=== PATIENT | male | born 1970 | race Caucasian/White ===

== ENCOUNTER 2024-06-15 04:58 | Inpatient (IN) | payer OTHER, MEDICAID, MEDICARE, SELFPAY ==
[2024-06-15] VITALS (8 sets, daily range): BP systolic 107–128; BP diastolic 73–94; PULSE 73–106; RESP 15–19; TEMP 36.3–36.8; O2SAT 95–98; BMI 30.5
--- NOTE | 2024-06-15 05:17 | XR_ITS ---
Examination: AP chest single view Technique one AP portable upright chest single view Exam date and time: June 15, 2024 0541 hrs. Comparison February 02, 2024 Indication: Weakness today. Findings: Normal heart size No pneumonia or pulmonary edema The osseous structures are intact Impression: No active disease
--- NOTE | 2024-06-15 05:17 | PD.EDRME ---
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 Patient states he feels weak and thinks his sodium is low. Patient states he fell on his butt every time, but doesn't feel like anything is broken. Chief Complaint: Fall Vital signs: Vital Signs Temperature 98.2 F 06/15/24 05:09 Pulse Rate 86 06/15/24 05:09 Respiratory Rate 19 06/15/24 05:09 Blood Pressure 107/73 06/15/24 05:09 Pulse Oximetry (%) 96 06/15/24 05:09 Oxygen Delivery Method Room Air 06/15/24 05:09
[2024-06-15 06:23] LABS: Basophils # (Auto) 0.1 Thou/mm3 (0.0-0.2); Basophils % (Auto) 1 % (0-2.5); Eosinophils # (Auto) 0.2 Thou/mm3 (0.0-0.5); Eosinophils % (Auto) 2 % (0-10); Hematocrit 48.5 % (41.0-53.0); Hemoglobin 15.8 g/dL (13.5-16.0); Immature Granulocytes % (Auto) 1 % (0-0); Immature Granulocytes Auto 0.04 Thou/mm3 (0.00-0.00); Lymphocytes % (Auto) 24 % (10-50); Mean Corpuscular HGB Conc 32.6 g/dl (31.0-37.0); Mean Corpuscular Hemoglobin 25.6 pg (25.0-35.0); Mean Corpuscular Volume 79 fL (80-100); Monocytes # (Auto) 0.8 Thou/mm3 (0.0-0.8); Monocytes % (Auto) 9 % (0-12); Neutrophils # (Auto) 5.4 Thou/mm3 (1.8-7.7); Neutrophils % (Auto) 64 % (37-80); Nucleated Red Blood Cell % 0 /100 WBC (0); Platelet Count 156 Thou/mm3 (140-440); RDW Standard Deviation 43.5 fL (35.1-43.9); Red Blood Count 6.18 Miln/mm3 (4.50-5.90); White Blood Count 8.6 Thou/mm3 (3.8-10.6)
[2024-06-15 06:48] LABS: B-Type Natriuretic Peptide < 20 pg/mL (0-100)
[2024-06-15 07:00] LABS: Alanine Aminotransferase 116 U/L (10-49); Albumin, Serum 5.1 gm/dL (3.5-5.0); Albumin/Globulin Ratio 1.5 (1.2-2.2); Alkaline Phosphatase 122 U/L (46-116); Anion Gap 9 (7-16); Aspartate Amino Transferase 100 U/L (0-34); BUN/Creatinine Ratio 10 Ratio (12-20); Bilirubin,Total 0.4 mg/dL (0.3-1.2); Blood Urea Nitrogen 10 mg/dL (9-23); Calcium 10.4 mg/dL (8.3-10.6); Calcium (Corrected) 10.4 mg/dL (8.5-10.1); Carbon Dioxide 31.7 mMol/L (20.0-31.0); Chloride 105 mMol/L (98-107); Estimated Creatinine Clearance 98.5 mL/min (>60); Globulin 3.4 gm/dL (2.3-3.5); Glucose 111 mg/dL (74-106); Osmolality,Calculated 290 (275-295); Sodium 146 mMol/L (136-145); Total Protein 8.5 gm/dL (5.7-8.2); Troponin I < 0.002 ng/mL (0.0-0.045); eGFR > 60 See Note
[2024-06-15 08:45] LABS: Collection Type, Urine Clean Catch
[2024-06-15 09:14] LABS: Bilirubin,Urine Negative (Negative); Blood,Urine Negative (Negative); Clarity,Urine Clear (Clear/Hazy); Culture Indicated,Urine Not Indicated; Glucose, Urine Trace (Negative); Ketones,Urine Negative (Negative); Leukocyte Esterase,Urine Negative (Negative); Nitrite,Urine Negative (Negative); Protein,Urine Negative (Neg - Trace); RBC,Urine < 1 /hpf (0-3); Specific Gravity,Urine 1.006 (1.001-1.035); Squamous Epithelial Cell,Urine < 1 /hpf (0-5); Urobilinogen,Urine Negative mg/dL (0.0-1.0); WBC,Urine 1 /hpf (0-5)
[2024-06-15 09:23] LABS: Color,Urine Lt-Yellow (Lt Yel-Yel)
--- NOTE | 2024-06-15 09:56 | PC.NURSE ---
patient brought in by ambulance for fall. patient states he was at alf and got up at 0200 and fell on his butt, patient also states falling off his bed at 0300 and falling on his butt. patient denies losing consciousness or hitting any other extremities during fall. patient states 0/10 pain at the moment
--- NOTE | 2024-06-15 10:24 | PD.EDADULT ---
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 Patient states he feels weak and thinks his sodium is low. Patient states he fell on his butt every time, but doesn't feel like anything is broken. Patient presented to the emergency department complaining of generalized weakness with frequent falling last couple days. He has pituitary insufficiency and is on hydrocortisone daily. No fever. Positive for falling. No back pain. No headache. No chest pain. No neck pain. No abdominal pain. No bleeding. No hips pain Related Data Home Medications ?Medication ?Instructions ?Recorded ?Confirmed aspirin 81 mg tablet 81 mg PO QDAY 12/26/23 06/15/24 atorvastatin 40 mg tablet 40 mg PO HS 12/26/23 06/15/24 empagliflozin 10 mg tablet 10 mg PO QAM 12/26/23 12/26/23 (Jardiance) levothyroxine 100 mcg tablet 100 mcg PO DAILY 12/26/23 06/15/24 linagliptin 5 mg tablet (Tradjenta) 5 mg PO DAILY 12/26/23 12/26/23 montelukast 10 mg tablet 10 mg PO QPM 12/26/23 06/15/24 omeprazole 20 mg capsule,delayed 20 mg PO DAILY 12/26/23 06/15/24 release solifenacin 5 mg tablet 5 mg PO QID 12/26/23 01/13/24 trazodone 100 mg tablet 150 mg PO HS 12/26/23 01/13/24 Previous Rx's ?Medication ?Instructions ?Recorded sodium chloride 1,000 mg soluble 1,000 mg PO QDAY #30 tabs 11/11/23 tablet hydrocortisone 5 mg tablet 5 mg PO QDAY@1400 30 days #30 tabs 01/18/24 hydrocortisone 5 mg tablet 5 mg PO QDAY@1800 30 days #30 tabs 01/18/24 hydrocortisone 5 mg tablet 15 mg (3 x 5 mg) PO QDAY@0600 30 01/18/24 days #90 tabs desmopressin 0.2 mg tablet 0.2 mg PO TID #60 tabs 01/19/24 Allergies Allergy/AdvReac Type Severity Reaction Status Date / Time No Known Allergies Allergy Verified 11/11/23 13:48 Review of Systems Review of Systems Narrative Review of Systems: REVIEW OF SYSTEM: GEN:? negative except mentioned in HPI HEENT:? negative except mentioned in HPI NECK:? negative except mentioned in HPI PULM:? negative except mentioned in HPI CARD:? negative except mentioned in HPI GI:? negative except mentioned in HPI MUSCULO/SKET: negative except mentioned in HPI SKIN:? negative except mentioned in HPI NEURO:? negative except mentioned in HPI PSYCH:? negative except mentioned in HPI Past Medical History Past Medical History NEUROLOGIC: Positive Brain Tumor; Negative Seizures CARDIAC: Negative Congestive Heart Failure RESPIRATORY: Negative Chronic Obstructive Pulmonary Disease (COPD) GENITOURINARY: Negative Renal Disease MUSCULOSKELETAL: Negative Muscular Dystrophy ENDOCRINE: Positive Diabetes Mellitus Type 2 and Pituitary Disease; Negative Diabetes Mellitus Type 1 PSYCHO/SOCIAL: Positive Depression OTHER HISTORY: Positive Falls Social History SMOKING STATUS: Never smoker ED Exam Narrative Physical exam: Aaox4. No acute distress O2 saturation is normal Heent:? perra. Eomi. No icteric. Neck: full rom.? No mass.? No jvd.? No lymphadenopathy Lungs:? clear, full, equal Heart:? s1s2.? Rrr.? No murmur, gallop or rub. Abd: soft, nondistended, nontender, no mass, no rebound or guarding, no flank tender.? No incarcerated? hernia Ext:? full rom.? No deformity.? Normal csm. With generalized weakness muscle strength 3/5 throughout Neuro:?? intact cn2 to 12.? No facial droop.? No slurred speech.? No focal deficit.? Moves all 4ext Skin:? no rash.? No cellulitis.? No lesion.? No laceration Psychiatrical: no suicidal.? No homicidal.? No delusion.? No hallucinating Course Quality Measures none Orders Category Date Time Status Water Softener Installer Q4H START 00 Care 06/15/24 10:20 Completed EKG (ED ONLY) *Do not use* NOW Care 06/15/24 05:16 Completed Saline [Insert IV] NOW Care 06/15/24 10:23 Active EKG (ED Only) Stat Exams 06/15/24 05:16 Ordered XR chest 1V portable Stat Exams 06/15/24 05:17 Completed B-Type Natriuretic Peptide Stat Lab 06/15/24 05:48 Completed CBC Stat Lab 06/15/24 05:48 Completed Comprehensive Metabolic Panel Stat Lab 06/15/24 05:48 Completed Troponin I Stat Lab 06/15/24 05:48 Completed Urinalysis, C/S if Indicated Stat Lab 06/15/24 07:18 Completed Hydrocortisone Sod Succ Inj [SoluCORTEF Inj] Med 06/15/24 10:20 Discontinued 100 mg IV X1 ONE Sodium Chloride 0.9% 1000 ml [Ns] 1,000 ml Med 06/15/24 10:32 Discontinued IV 250 mls/hr Vital Signs Vital signs: Vital Signs Temperature 98.2 F 06/15/24 05:09 Pulse Rate 86 06/15/24 05:09 Respiratory Rate 19 06/15/24 05:09 Blood Pressure 107/73 06/15/24 05:09 Pulse Oximetry (%) 96 06/15/24 05:09 Oxygen Delivery Method Room Air 06/15/24 05:09 [facility] Patient data External records reviewed:: [facility] previous records Clinical information provided by:: patient Social determinants that could affect healthcare access:: none Patient has the following chronic illnesses:: Hypopituitary How is presenting disease/condition affected by chronic disease/condition?: exacerbated by Evaluation data The following diagnostics were reviewed and interpreted by me:: lab results, radiology exam(s) and EKG tracing(s) Lab and/or radiology exams considered but not ordered:: None Interpretation Summary: See [facility] Medications Medications considered but not ordered:: None Medication administrations:: Medication Administration History Acetaminophen (Acetaminophen 325 Mg Tablet) 650 mg PO Q6H PRN PRN Reason: Fever >101.5 Stop: 07/15/24 11:57 Aspirin (Aspirin Ec 81 Mg Tabec) 81 mg PO QDAY [facility] Stop: 07/15/24 16:29 Last Admin: 06/15/24 16:38 Dose: 81 mg Documented By: PARKER Hydrocortisone (Hydrocortisone 5 Mg Tablet) 5 mg PO BID@1400,1800 [facility] Stop: 07/15/24 17:59 Last Admin: 06/15/24 17:15 Dose: 5 mg Documented By: PARKER Hydrocortisone (Hydrocortisone 5 Mg Tablet) 15 mg PO QDAY@0600 [facility] Stop: 07/16/24 05:59 Sodium Chloride (Ns 0.45%) 1,000 mls @ 75 mls/hr IV .[id number] ONE Stop: 06/16/24 05:35 Last Admin: 06/15/24 16:38 Dose: 75 mls/hr Documented By: PARKER Levothyroxine Sodium (Levothyroxine Sodium 100 Mcg Tablet) 100 mcg PO ACBR [facility] Stop: 07/16/24 05:59 Home Medication- Please Speak With Patient Caregiver To Have Rx Brought To [facility] 1 ea PO TID [facility] Stop: 07/15/24 16:44 Last Admin: 06/15/24 16:53 Dose: Not Given Documented By: PARKER Non-Admin Reason: Medication Not Available Ondansetron HCl (Ondansetron Inj 2 Mg/Ml Inj 2 Ml) 4 mg IV Q6H PRN; Protocol PRN Reason: NAUSEA OR VOMITING Stop: 07/15/24 11:57 Pantoprazole Sodium (Pantoprazole 40 Mg Tablet) 40 mg PO DAILY [facility] Stop: 07/16/24 08:59 Discontinued Medications Atorvastatin Calcium (Atorvastatin Calcium 20 Mg Tablet) 40 mg PO HS [facility] Stop: 07/15/24 20:59 Hydrocortisone Sodium Succinate (Hydrocortisone Sod Succ Inj 100 Mg Vial) 100 mg IV X1 ONE Stop: 06/15/24 10:21 Last Admin: 06/15/24 11:43 Dose: 100 mg Documented By: CHACHO Sodium Chloride (Ns) 1,000 mls @ 250 mls/hr IV .Q4H ONE Stop: 06/15/24 14:31 Last Admin: 06/15/24 11:43 Dose: 250 mls/hr Documented By: EF Some of the medication given by me. Some of those medication given by the admitting doctor Consultations Consultation(s) initiated? (list below): No Diagnosis Differential Diagnosis ED Complaint MDM: Pituitary insufficiency. Stroke. Cardiac event. Sepsis Most likely diagnosis given after review of the tests above:: Hypopituitary Admission Indicated Admission indicated?: indicated Explain why admission is indicated or not indicated:: Patient will need supplemental hydrocortisone IV Admission Request Was there a request for admission?: Yes Admission Attestation Admission request attestation: Discussed case with [] from Hospitalist service regarding admission. Discussed patients ED course, exam findings, labs, and radiology results. The Hospitalist [agrees,declines] to accept the patient for admission. Disposition Plan Disposition Plan: Admit Medical Decision Making MDM Narrative MDM Narrative: CBC unremarkable. CMP negative. UA negative. BNP negative. Troponin negative. Chest x-ray interpreted by me: Clear lungs. Heart normal. Mediastinum normal. Normal bones Twelve-lead EKG that was done at 5:36 AM and interpreted by me: Sinus rhythm. Heart rate of 88. Left axis. No ST elevation. No ST depression. Nonspecific T wave inversions are noted in leads I, aVL and V V1-V6. With PVC. In the emergency department the patient was put on a academic support coordinator. He is being given hydrocortisone IV by me. 10:20 AM, I spoke to and discussed with Dr. Powell, hospitalist attending. He will assess the patient for admission. Critical care is approximately 35 minutes excluding any procedure. The high probability of sudden, clinically significant deterioration in the patient?s condition required the highest level of my preparedness to intervene urgently. The services I provided to this patient were to treat and/or prevent clinically significant deterioration. Services included the following: chart data review, reviewing nursing notes and/or old charts, documentation time, healthcare network consultant collaboration regarding findings and treatment options, medication orders and management, direct patient care, vital sign assessments and ordering, interpreting and reviewing diagnostic studies and lab tests. Aggregate critical care time includes only time during which I was engaged in work directly related to the patient?s care, as described above, whether at bedside or elsewhere in the Emergency Department. It did not include time spent performing other reported procedures or the services of residents, students, nurses or physician assistants. Differential Diagnosis Differential Diagnosis: Pituitary insufficiency. Stroke. Cardiac event. Sepsis Lab Data 06/15/24 05:48 06/15/24 05:48 Labs: Lab Results 06/15/24 06/15/24 Range/Units 05:48 07:18 WBC 8.6 (3.8-10.6) Thou/mm3 RBC 6.18 H (4.50-5.90) Miln/mm3 Hgb 15.8 (13.5-16.0) g/dL Hct 48.5 (41.0-53.0) % MCV 79 L (80-100) fL MCH 25.6 (25.0-35.0) pg MCHC 32.6 (31.0-37.0) g/dl RDW Std Deviation 43.5 (35.1-43.9) fL Plt Count 156 (140-440) Thou/mm3 Neut % (Auto) 64 (37-80) % Lymph % (Auto) 24 (10-50) % [place] % (Auto) 9 (0-12) % Eos % (Auto) 2 (0-10) % Baso % (Auto) 1 (0-2.5) % Neut # (Auto) 5.4 (1.8-7.7) Thou/mm3 Lymph # (Auto) 2.0 (1.0-4.8) Thou/mm3 [place] # (Auto) 0.8 (0.0-0.8) Thou/mm3 Eos # (Auto) 0.2 (0.0-0.5) Thou/mm3 Baso # (Auto) 0.1 (0.0-0.2) Thou/mm3 Immature Gran # (Auto) 0.04 H (0.00-0.00) Thou/mm3 Absolute Nucleated RBC 0.00 (0.00-0.00) Thou/mm3 Immature Gran % 1 H (0-0) % Nucleated RBC % 0 (0) /100 WBC Sodium 146 H (136-145) mMol/L Potassium 4.0 (3.4-5.1) mMol/L Chloride 105 (98-107) mMol/L Carbon Dioxide 31.7 H (20.0-31.0) mMol/L Anion Gap 9 (7-16) BUN 10 (9-23) mg/dL Creatinine 1.0 (0.6-1.3) mg/dL Estim Creat Clear Calc 98.5 (>60) mL/min eGFR > 60 (60 - ) See Note BUN/Creatinine Ratio 10 L (12-20) Ratio Glucose 111 H (74-106) mg/dL Calculated Osmolality 290 (275-295) Calcium 10.4 (8.3-10.6) mg/dL Corrected Calcium 10.4 H (8.5-10.1) mg/dL Total Bilirubin 0.4 (0.3-1.2) mg/dL AST 100 H (0-34) U/L ALT 116 H (10-49) U/L Alkaline Phosphatase 122 H (46-116) U/L Troponin I < 0.002 (0.0-0.045) ng/mL B-Natriuretic Peptide < 20 (0-100) pg/mL Total Protein 8.5 H (5.7-8.2) gm/dL Albumin 5.1 H (3.5-5.0) gm/dL Globulin 3.4 (2.3-3.5) gm/dL Albumin/Globulin Ratio 1.5 (1.2-2.2) Ur Collection Type Clean Catch Urine Color Lt-Yellow (Lt Yel-Yel) Urine Clarity Clear (Clear/Hazy) Urine pH 6.0 (5.0-7.0) Ur Specific [place] 1.006 (1.001-1.035) Urine Protein Negative (Neg - Trace) Urine Glucose (UA) Trace (Negative) Urine Ketones Negative (Negative) Urine Blood Negative (Negative) Urine Nitrite Negative (Negative) Urine Bilirubin Negative (Negative) Urine Urobilinogen (Auto) Negative (0.0-1.0) mg/dL Ur Leukocyte Esterase Negative (Negative) Urine RBC < 1 (0-3) /hpf Urine WBC 1 (0-5) /hpf Ur Squamous Epith Cells < 1 (0-5) /hpf Urine Bacteria None (None) Ur Culture Indicated? Not Indicated Ur Random Sodium 38.0 (20.0-110.0) mMol/L Discharge Plan Plan Patient Disposition: Admit Acute Care w/in Hospital Disposition Comment: Stable for admit Problem List Clinical Impression: Hypopituitarism, Generalized muscle weakness
--- NOTE | 2024-06-15 10:57 | PC.NURSE ---
hospitalist and residence at bedside to see pt
[2024-06-15] MEDS: SODIUM CHLORIDE 0.9% 1000 ML 1,000 ML 250 ML IV (11:43)
[2024-06-15] MEDS: HYDROCORTISONE SOD SUCC INJ 100 MG VIAL IV (11:43)
--- NOTE | 2024-06-15 13:53 | PD.RESHP ---
Documentation for date of: 06/15/24 [facility] History of Present Illness Chief complaint: Generalized weakness History of present illness: A 53-year-old male with significant past medical history of pitutary tumor s/p removal resulting in panhypopituitarism, diabetes mellitus, diabetes insipidus, hypothyroidism, adrenal insufficiency who was living in a assisted living facility presented to the hospital with chief complaints of generalized weakness. Reported that since 1 week, he noticed increased frequency of urination, once every 2 hours in the morning and every hourly during nights. Denies burning micturition, foul smell in the urine, chills and rigors, fever. Patient was able to do his routine activities till yesterday, but since yesterday patient noticed difficulty in walking. [place] like his legs are giving away and stated that he noticed weakness more in the lower extremities than upper extremities without any pain. Reported that he fell on his knees because of the weakness on the day of admission with no restriction of movements later. Denies palpitations, syncopal episodes, chest pain, shortness of breath, vertigo. Denies tingling, numbness. Reported that he is compliant with all his medications ED Course: -Initial vitals were blood pressure 107/73 mmHg, pulse rate 86 bpm, respiratory rate 19/min, SpO2 96% with room air. -Labs significant for WBC 8.6, hemoglobin 15.8, platelets 156, sodium 146, potassium 4, chloride 105, bicarb 31.7, BUN 10, creatinine 1. AST 100, ALT 116, urine analysis is within normal limits. Urine sodium is within normal limits. Chest x-ray showed no active disease. -In the ED, patient was given hydrocortisone and started on normal saline -Patient was admitted for hypernatremia Past medical history: Panhypopituitarism Past surgical history: Pituitary gland removal Social history: Denies smoking, alcohol, other illicit drug abuse. Review of Systems Review of Systems Narrative Review of Systems: Constitutional: No Weight Change, No Fever, No Chills, No Night Sweats, Fatigue, Malaise ENT/Mouth: No Hearing Changes, No Ear Pain, No Nasal Congestion, No Sinus Pain, No Hoarseness, No sore throat, No Rhinorrhea, No Swallowing Difficulty Eyes: No Eye Pain, No Swelling, No Redness, No Foreign Body, No Discharge, No Vision Changes Cardiovascular: No Chest Pain, No SOB, No PND, No Dyspnea on Exertion, No Orthopnea, No Edema, No Palpitations Respiratory: No Cough, No Sputum, No Wheezing, No Dyspnea Gastrointestinal: No Nausea, No Vomiting, No Diarrhea, No Constipation, No Pain, No Heartburn, No Anorexia, No Dysphagia, No Hematochezia, No Melena, No Flatulence, No Jaundice Genitourinary: No Dysuria, No Urinary Frequency, No Hematuria, No Urinary Incontinence, No Urgency, No Flank Pain, No Urinary Flow Changes, No Hesitancy Musculoskeletal: No Arthralgias, No Myalgias, No Joint Swelling, No Joint Stiffness, No Back Pain, No Neck Pain, No Injury History Skin: No Skin Lesions, No Pruritis Neuro: Generalized weakness, No Numbness, No Paresthesias, No Loss of Consciousness, No Syncope, No Dizziness, No Headache, No Coordination Changes, fall on his knees on 06/15/2024 Exam Vital Signs Temp Pulse Resp BP Pulse Ox O2 Del Method 98.3 F 91 18 112/83 96 Room Air 06/15/24 12:25 06/15/24 12:25 06/15/24 12:25 06/15/24 12:25 06/15/24 12:25 06/15/24 12:25 Narrative Exam General: Awake. HEENT: Normocephalic, atraumatic, mucous membranes moist. Heart: Regular rate and rhythm, no murmurs. Lungs: Clear to auscultation with no wheezing or crackles. Abdomen: Soft, nondistended, nontender, positive bowel sounds. ?No guarding or rebound tenderness. Neurologic: Alert and oriented x3, no gross neurological deficit, and patient able to move all 4 extremities. Extremities: No edema. Skin: No rash or ecchymoses. Results: Labs 06/16/24 04:39 06/16/24 04:39 Labs: Short CBC 06/15/24 Range/Units 05:48 WBC 8.6 (3.8-10.6) Thou/mm3 Hgb 15.8 (13.5-16.0) g/dL Hct 48.5 (41.0-53.0) % Plt Count 156 (140-440) Thou/mm3 BMP 06/15/24 05:48 Sodium 146 H Potassium 4.0 Chloride 105 Carbon Dioxide 31.7 H BUN 10 Creatinine 1.0 Glucose 111 H Calcium 10.4 Cardiac Enzymes 06/15/24 Range/Units 05:48 Troponin I < 0.002 (0.0-0.045) ng/mL Liver Function 06/15/24 Range/Units 05:48 Total Bilirubin 0.4 (0.3-1.2) mg/dL AST 100 H (0-34) U/L ALT 116 H (10-49) U/L Alkaline Phosphatase 122 H (46-116) U/L Albumin 5.1 H (3.5-5.0) gm/dL Urine 06/15/24 Range/Units 07:18 Urine Color Lt-Yellow (Lt Yel-Yel) Urine Clarity Clear (Clear/Hazy) Urine pH 6.0 (5.0-7.0) Ur Specific [place] 1.006 (1.001-1.035) Urine Protein Negative (Neg - Trace) Urine Glucose (UA) Trace (Negative) Quality Measures Quality Measures VTE prophylaxis Medications Home Medications and Allergies Home Medications ?Medication ?Instructions ?Recorded ?Confirmed ?Type aspirin 81 mg tablet 81 mg PO QDAY 12/26/23 06/15/24 History atorvastatin 40 mg tablet 40 mg PO HS 12/26/23 06/15/24 History empagliflozin 10 mg tablet 10 mg PO QAM 12/26/23 12/26/23 History (Jardiance) levothyroxine 100 mcg tablet 100 mcg PO DAILY 12/26/23 06/15/24 History linagliptin 5 mg tablet (Tradjenta) 5 mg PO DAILY 12/26/23 12/26/23 History montelukast 10 mg tablet 10 mg PO QPM 12/26/23 06/15/24 History omeprazole 20 mg capsule,delayed 20 mg PO DAILY 12/26/23 06/15/24 History release solifenacin 5 mg tablet 5 mg PO QID 12/26/23 01/13/24 History trazodone 100 mg tablet 150 mg PO HS 12/26/23 01/13/24 History Allergies Allergy/AdvReac Type Severity Reaction Status Date / Time No Known Allergies Allergy Verified 06/16/24 06:33 Visit Medications Acetaminophen (Acetaminophen 325 Mg Tablet) 650 mg PO Q6H PRN PRN Reason: Fever >101.5 Stop: 07/15/24 11:57 Sodium Chloride (Ns) 1,000 mls @ 250 mls/hr IV .Q4H ONE Stop: 06/15/24 14:31 Last Admin: 06/15/24 11:43 Dose: 250 mls/hr Ondansetron HCl (Ondansetron Inj 2 Mg/Ml Inj 2 Ml) 4 mg IV Q6H PRN; Protocol PRN Reason: NAUSEA OR VOMITING Stop: 07/15/24 11:57 Discontinued Medications Hydrocortisone Sodium Succinate (Hydrocortisone Sod Succ Inj 100 Mg Vial) 100 mg IV X1 ONE Stop: 06/15/24 10:21 Last Admin: 06/15/24 11:43 Dose: 100 mg Assessment & Plan Plan A 53-year-old male with significant past medical history of 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 twice daily, desmopressin 0.2 Mg p.o. 3 times daily, levothyroxine 100 mcg p.o. daily, Jardiance 10 Mg p.o. daily, Tradjenta 5 Mg p.o. daily -Recently admitted in the hospital in December 2023 for hyponatremia -Presented with generalized weakness and also reported that his knees are giving away -Also reported that since 1 week he is urinating more frequently, once in every 2 hours during the day and once every hour during nights -Denies fever, burning micturition, shortness of breath, nausea, vomiting, diarrhea. -Labs showed CBC within normal limits, sodium 146, potassium 4, chloride 105, bicarb 31.7, BUN 10, creatinine 1, calcium 10.4, BNP negative. -Chest x-ray showed no active disease. Plan -Creatinine kinase levels are ordered to look for steroid induced myopathy in setting of elevated liver enzymes -Will continue medications at home dosage. -Recommended to follow-up with Dr. Watts to adjust the medications # Hypernatremia To rule out inadequate dosage of medications for diabetes insipidus -Patient normally is to have low sodium levels -Presented with generalized weakness and noted to have sodium of 146 -Stated that he is having increased frequency of micturition without any symptoms of UTI Plan -Started on 0.45% NS at 75 mL/h -Urine sodium is ordered -Will continue to monitor sodium levels and treat accordingly. Hospital Maintenance: Dispo: MedSurg DVT ppx: SCD GI ppx: PPI Diet: Regular IV lines: Peripheral Code status: Full code Patient plan of care was discussed with the attending physician, Dr. Sherry Torres, PGY1 Attending Provider Attestation/Addendum I reviewed labs, imaging, EKG, home medications and prior available records. Face to face evaluation was performed by me. I have personally examined the patient and discussed assessment and plan with the IM team. I reviewed the resident note and agree with the plan with exceptions as below. Generalized weakness Hypopituitarism Chronic steroid use hypernatremia Resume home hydrocortisone, desmopressin, and levothyroxine Ordered CPK Start IV hydration Monitor sodium level Consult endocrinology Obtain PT evaluation
[2024-06-15 16:30] LABS: Creatine Kinase 122 U/L (34-171)
[2024-06-15] MEDS: SODIUM CHLORIDE 0.45 % 1,000 ML 75 ML IV (16:38)
[2024-06-15] MEDS: ASPIRIN EC 81 MG TABEC PO (16:38)
[2024-06-15] MEDS: HYDROCORTISONE 5 MG TABLET PO (17:15)
[2024-06-16] VITALS: BP 134/95; PULSE 98; RESP 16; TEMP 36.1; O2SAT 95
[2024-06-16 04:00] VITALS: BP 134/94; PULSE 93; RESP 17; TEMP 36.4; O2SAT 96
[2024-06-16] MEDS: HYDROCORTISONE 5 MG TABLET 15 MG PO (06:08)
[2024-06-16] MEDS: LEVOTHYROXINE SODIUM 100 MCG TABLET PO (06:08)
[2024-06-16 06:12] LABS: Basophils # (Auto) 0.1 Thou/mm3 (0.0-0.2); Basophils % (Auto) 1 % (0-2.5); Eosinophils # (Auto) 0.1 Thou/mm3 (0.0-0.5); Eosinophils % (Auto) 1 % (0-10); Hematocrit 54.3 % (41.0-53.0); Hemoglobin 17.2 g/dL (13.5-16.0); Immature Granulocytes % (Auto) 1 % (0-0); Immature Granulocytes Auto 0.13 Thou/mm3 (0.00-0.00); Lymphocytes # (Auto) 2.6 Thou/mm3 (1.0-4.8); Lymphocytes % (Auto) 22 % (10-50); Mean Corpuscular HGB Conc 31.7 g/dl (31.0-37.0); Mean Corpuscular Hemoglobin 25.8 pg (25.0-35.0); Mean Corpuscular Volume 81 fL (80-100); Monocytes # (Auto) 1.1 Thou/mm3 (0.0-0.8); Monocytes % (Auto) 9 % (0-12); Neutrophils # (Auto) 7.6 Thou/mm3 (1.8-7.7); Neutrophils % (Auto) 66 % (37-80); Nucleated Red Blood Cell % 0 /100 WBC (0); Platelet Count 201 Thou/mm3 (140-440); RDW Standard Deviation 46.5 fL (35.1-43.9); Red Blood Count 6.67 Miln/mm3 (4.50-5.90); White Blood Count 11.6 Thou/mm3 (3.8-10.6)
[2024-06-16 06:30] LABS: Alanine Aminotransferase 131 U/L (10-49); Albumin/Globulin Ratio 1.5 (1.2-2.2); Alkaline Phosphatase 130 U/L (46-116); Anion Gap 13 (7-16); Aspartate Amino Transferase 69 U/L (0-34); BUN/Creatinine Ratio 9 Ratio (12-20); Bilirubin,Total 0.6 mg/dL (0.3-1.2); Blood Urea Nitrogen 9 mg/dL (9-23); Calcium 10.3 mg/dL (8.3-10.6); Calcium (Corrected) 10.3 mg/dL (8.5-10.1); Carbon Dioxide 29.8 mMol/L (20.0-31.0); Chloride 112 mMol/L (98-107); Estimated Creatinine Clearance 98.5 mL/min (>60); Globulin 3.4 gm/dL (2.3-3.5); Glucose 101 mg/dL (74-106); Magnesium 2.5 mg/dL (1.6-2.6); Osmolality,Calculated 306 (275-295); Phosphorous 5.1 mg/dL (2.4-5.1); Sodium 155 mMol/L (136-145); Thyroid Stimulating Hormone 0.06 uIU/mL (0.55-4.78); Total Protein 8.4 gm/dL (5.7-8.2); eGFR > 60 See Note
--- NOTE | 2024-06-16 06:30 | PC.NURSE ---
iv fluid complete- Saline locked iv.
--- NOTE | 2024-06-16 06:36 | PC.NURSE ---
re own med and home med rec- Advised pt to have family bring desmopressin med from home and bring all med lists for med verification.
[2024-06-16 08:00] VITALS: BP 115/87; PULSE 99; RESP 18; TEMP 36.4; O2SAT 97
[2024-06-16] MEDS: PANTOPRAZOLE 40 MG TABLET PO (09:23)
[2024-06-16] MEDS: ASPIRIN EC 81 MG TABEC PO (09:23)
[2024-06-16] MEDS: DEXTROSE 5%-WATER 1,000 ML 80 ML IV (09:25)
[2024-06-16] MEDS: LEVOTHYROXINE SODIUM 25 MCG TABLET PO (11:35)
[2024-06-16 11:58] LABS: Albumin, Serum 4.6 gm/dL (3.5-5.0); Anion Gap 6 (7-16); BUN/Creatinine Ratio 8 Ratio (12-20); Blood Urea Nitrogen 9 mg/dL (9-23); Calcium 9.8 mg/dL (8.3-10.6); Calcium (Corrected) 9.8 mg/dL (8.5-10.1); Carbon Dioxide 34.1 mMol/L (20.0-31.0); Chloride 111 mMol/L (98-107); Creatinine (Component) 1.2 mg/dL (0.6-1.3); Estimated Creatinine Clearance 82.1 mL/min (>60); Free T4 (Free Thyroxine) 0.83 ng/dL (0.89-1.76); Glucose 180 mg/dL (74-106); Osmolality,Calculated 303 (275-295); Phosphorous 4.9 mg/dL (2.4-5.1); Potassium 3.9 mMol/L (3.4-5.1); Sodium 151 mMol/L (136-145); eGFR > 60 See Note
[2024-06-16 12:00] VITALS: BP 127/97; PULSE 72; RESP 18; TEMP 36.5; O2SAT 97
[2024-06-16] MEDS: HYDROCORTISONE 5 MG TABLET PO ×2 (13:20→17:40)
--- NOTE | 2024-06-16 14:37 | PD.RESPRO ---
Documentation for date of: 06/16/24 Subjective Subjective Interval history: Patient was seen and examined at bedside this AM. No acute events overnight. Patient tolerating diet, adequate urine output and mentation is improving but not yet at baseline Likely in the setting of severe hypothyroidism, TSH 0.06 and free T4 0.[address] Watts's recommendations. Increased Levothyroxine from 100 -> 125 mcg daily for now @ 8:30 AM : Discontinued 0.45 NS, given increase in Na 146 -> 153. Started on D5W @ 80 cc/h with q4H renal panel. @ 2:30 PM : Na 153 -> 151 and Osm 306 -> 303. Will continue to monitor q4hrly Ordered PT evaluation for tomorrow, once mentation improves a bit more Exam Vital Signs Temp Pulse Resp BP Pulse Ox O2 Del Method 97.7 F 72 18 127/97 H 97 Room Air 06/16/24 12:00 06/16/24 12:00 06/16/24 12:00 06/16/24 12:00 06/16/24 12:00 06/16/24 12:00 Narrative Exam Constitutional Drowsy, oriented x4 and comfortable HEENT Vision grossly intact. Patent nares. Trachea midline. On 1L via NC Respiratory Chest normal on inspection and clear to auscultation bilaterally. Cardiovascular S1 and S2 audible, RRR. No murmurs or carotid bruit. No gross JVD. Abdominal Soft and non tender to palpation in all quadrants. BS + Genitourinary No bladder tenderness, no flank pain. Normal to palpation. Musculoskeletal Extremities tone within normal limits. No LE edema. Neurological CN II - XII grossly intact. Extremity motor and sensation grossly intact. Generalized weakness. Skin Warm, dry and intact. No apparent lesions. Psychiatric Patient has a good affect, is cooperative. Objective Labs 06/16/24 04:39 06/16/24 14:44 Labs: Laboratory Results - last 24 hr 06/15/24 06/16/24 06/16/24 15:47 04:39 11:26 WBC 11.6 H RBC 6.67 H Hgb 17.2 H Hct 54.3 H MCV 81 MCH 25.8 MCHC 31.7 RDW Std Deviation 46.5 H Plt Count 201 D Neut % (Auto) 66 Lymph % (Auto) 22 [place] % (Auto) 9 Eos % (Auto) 1 Baso % (Auto) 1 Neut # (Auto) 7.6 Lymph # (Auto) 2.6 [place] # (Auto) 1.1 H Eos # (Auto) 0.1 Baso # (Auto) 0.1 Immature Gran # (Auto) 0.13 H Absolute Nucleated RBC 0.00 Immature Gran % 1 H Nucleated RBC % 0 Sodium 155 H 151 H Potassium 4.0 3.9 Chloride 112 H 111 H Carbon Dioxide 29.8 34.1 H Anion Gap 13 6 L BUN 9 9 Creatinine 1.0 1.2 Estim Creat Clear Calc 98.5 82.1 eGFR > 60 > 60 BUN/Creatinine Ratio 9 L 8 L Glucose 101 180 H D Calculated Osmolality 306 H 303 H Calcium 10.3 9.8 Corrected Calcium 10.3 H 9.8 Phosphorus 5.1 4.9 Magnesium 2.5 Total Bilirubin 0.6 AST 69 H ALT 131 H Alkaline Phosphatase 130 H Total Creatine Kinase 122 Total Protein 8.4 H Albumin 5.0 4.6 Globulin 3.4 Albumin/Globulin Ratio 1.5 TSH 0.06 L* Free T4 Cancelled 0.83 L Quality Measures Quality Measures none Assessment & Plan Assessment Current Active Medications: Generic Name Dose Route Start Last Admin Trade Name Freq PRN Reason Stop Dose Admin Acetaminophen 650 mg 06/16/24 13:08 Acetaminophen 325 Mg Tablet PO 07/15/24 11:57 Q6H PRN Fever >100.1 Aspirin 81 mg 06/15/24 16:30 06/16/24 09:23 Aspirin Ec 81 Mg Tabec PO 07/15/24 16:29 81 mg QDAY GERARD Administration Dextrose 50 ml 06/16/24 13:07 Dextrose 50%-Water Inj 50 Ml Syringe IV 07/16/24 13:06 Q15MIN PRN BG <50 OR BG <70 & pt unresponsive Glucagon 1 mg 06/16/24 13:07 Glucagon Inj 1 Mg Vial IM Q15MIN PRN BG <70, and no IV access Hydrocortisone 5 mg 06/15/24 18:00 06/16/24 13:20 Hydrocortisone 5 Mg Tablet PO 07/15/24 17:59 5 mg BID@1400,1800 GERARD Administration Hydrocortisone 15 mg 06/16/24 06:00 06/16/24 06:08 Hydrocortisone 5 Mg Tablet PO 07/16/24 05:59 15 mg QDAY@0600 GERARD Administration Dextrose 1,000 mls @ 80 mls/hr 06/16/24 08:21 06/16/24 09:25 D5w IV 06/16/24 20:50 80 mls/hr .[id number] ONE Administration Insulin Human Lispro 0 unit 06/16/24 17:00 Insulin Lispro (Admelog) 1 Unit/0.01 Ml Unit SC 07/16/24 16:59 ACHS [facility] Protocol Levothyroxine Sodium 125 mcg 06/17/24 06:00 Levothyroxine Sodium 125 Mcg Tablet PO 07/17/24 05:59 ACBR [facility] Home Medication- 1 ea 06/15/24 16:45 06/16/24 13:22 Please Speak With PO 07/15/24 16:44 Not Given Patient Caregiver To TID GERARD Have Rx Brought To [facility] Ondansetron HCl 4 mg 06/15/24 11:58 Ondansetron Inj 2 Mg/Ml Inj 2 Ml IV 07/15/24 11:57 Q6H PRN NAUSEA OR VOMITING Protocol Pantoprazole Sodium 40 mg 06/16/24 09:00 06/16/24 09:23 Pantoprazole 40 Mg Tablet PO 07/16/24 08:59 40 mg DAILY [facility] Administration Plan Mr Gold is a 53-year-old male with significant past medical history of 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 Generalized weakness Secondary to 2. Panhypopituitarism 3. Severe Hypothyroidism - Patient had a history of pituitary tumor removal at the age of 5 - Since then using medications -hydrocortisone 5 Mg p.o. twice daily, desmopressin 0.2 Mg p.o. 3 times daily, levothyroxine 100 mcg p.o. daily, Jardiance 10 Mg p.o. daily, Tradjenta 5 Mg p.o. daily - Recently admitted in the hospital in December 2023 for hyponatremia - Presented with generalized weakness and also reported that his knees are giving away , as well as polyuria x 2 weeks - Chest x-ray : no active disease - Severe hypothyroid : TSH 0.06 and free T4 0.83 Plan: - Will continue Hydrocortisone at home dose : 15mg @6am + 5mg @2pm + 5mg @6pm - Increased Levothyroxine from 100 -> 125 mcg daily for now - Recommended to follow-up with Endocrinology Dr. Watts outpatient for further treatment of hypothyroidism - Ordered PT evaluation for tomorrow 4. Hypertonic Hypernatremia - improving 5. Polyuria - Patient has a history of hyponatremia and was discharged on last hospitalization with NaCl tablets 1g daily - Labs : Sodium 146 and Osm 306 on presentation - Stated that he is having increased frequency of micturition without any symptoms of UTI - 06/16 : Discontinued 0.45 NS, given increase in Na 146 -> 153. Plan: - Started on D5W @ 80 cc/h with q4H renal panel. --> Follow up results show Na 153 -> 151 and Osm 306 -> 303. - Will continue to monitor renal panel q4HR - Stop all salt tabs for now - Low sodium diet only - Continue SSI w/ accu-checks, while patient is on D5W Hospital Maintenance: Dispo: MedSurg DVT ppx: SCDs GI ppx: PPI Diet: Low sodium IV lines: Peripheral Code status: Full code Plan of care discussed with attending Dr Powell , Sung Thornton M.D. , PGY2 Attending Provider Attestation/Addendum I reviewed labs, imaging, EKG, home medications and prior available records. Face to face evaluation was performed by me. I have personally examined the patient and discussed assessment and plan with the IM team. I reviewed the resident note and agree with the plan with exceptions as below. Generalized weakness Hypopituitarism Chronic steroid use Hypernatremia TSH is suppressed. Follow-up free T4. Increased levothyroxine to 125 mcg daily Resume home hydrocortisone, desmopressin Ordered CPK Started IV hydration Monitor sodium level: Increased. Started D5W. Monitor BMP Consult endocrinology Obtain PT evaluation
--- NOTE | 2024-06-16 15:21 | PC.SS ---
SS attempted x2 to meet with pt at bedside to discuss DC planning. Pt is asleep. SS attempted to speak to pt sister Delmis Mcintosh on pt behalf, no answer. VM Left.
--- NOTE | 2024-06-16 15:21 | PC.SS ---
Rounding: Pending Weatherization Field Technician reccs
[2024-06-16 15:40] LABS: Albumin, Serum 4.3 gm/dL (3.5-5.0); Anion Gap 9 (7-16); BUN/Creatinine Ratio 8 Ratio (12-20); Blood Urea Nitrogen 9 mg/dL (9-23); Calcium 9.6 mg/dL (8.3-10.6); Calcium (Corrected) 9.6 mg/dL (8.5-10.1); Chloride 110 mMol/L (98-107); Creatinine (Component) 1.2 mg/dL (0.6-1.3); Estimated Creatinine Clearance 82.1 mL/min (>60); Glucose 164 mg/dL (74-106); Osmolality,Calculated 300 (275-295); Phosphorous 5.9 mg/dL (2.4-5.1); Potassium 3.6 mMol/L (3.4-5.1); Sodium 150 mMol/L (136-145); eGFR > 60 See Note
--- NOTE | 2024-06-16 15:56 | PD.ADDPROG ---
Addendum Progress Note Addendum Date of report being addended: 06/17/24 Narrative: I reviewed labs, imaging, EKG, home medications and prior available records. Face to face evaluation was performed by me. I have personally examined the patient and discussed assessment and plan with the IM team. I reviewed the resident note and agree with the plan with exceptions as below. Generalized weakness Hypopituitarism Chronic steroid use Hypernatremia TSH is increased. Follow-up free T4: Decreased. Increased levothyroxine to 125 mcg daily Resume home hydrocortisone, desmopressin Ordered CPK: WNL Started IV hydration Monitor sodium level: Improved. Stop D5W. Monitor BMP Pending endocrinology recommendations Follow-up PT evaluation
[2024-06-16 16:00] VITALS: BP 124/88; PULSE 91; RESP 17; TEMP 36.6; O2SAT 96
[2024-06-16] MEDS: INSULIN LISPRO (AdmeLOG) 1 UNIT/0.01 ML UNIT SC ×2 (17:40→20:09)
[2024-06-16 20:00] VITALS: BP 125/84; PULSE 99; RESP 18; TEMP 36.8; O2SAT 97
[2024-06-16 20:31] LABS: Albumin, Serum 4.2 gm/dL (3.5-5.0); Anion Gap 8 (7-16); BUN/Creatinine Ratio 6 Ratio (12-20); Blood Urea Nitrogen 8 mg/dL (9-23); Calcium 9.6 mg/dL (8.3-10.6); Calcium (Corrected) 9.6 mg/dL (8.5-10.1); Carbon Dioxide 28.7 mMol/L (20.0-31.0); Chloride 110 mMol/L (98-107); Creatinine (Component) 1.3 mg/dL (0.6-1.3); Estimated Creatinine Clearance 75.8 mL/min (>60); Glucose 136 mg/dL (74-106); Osmolality,Calculated 292 (275-295); Phosphorous 5.4 mg/dL (2.4-5.1); Potassium 4.2 mMol/L (3.4-5.1); Sodium 147 mMol/L (136-145); eGFR > 60 See Note
[2024-06-16 23:52] LABS: Albumin, Serum 4.4 gm/dL (3.5-5.0); Anion Gap 10 (7-16); BUN/Creatinine Ratio 11 Ratio (12-20); Blood Urea Nitrogen 11 mg/dL (9-23); Calcium 9.9 mg/dL (8.3-10.6); Calcium (Corrected) 9.9 mg/dL (8.5-10.1); Carbon Dioxide 31.6 mMol/L (20.0-31.0); Chloride 107 mMol/L (98-107); Estimated Creatinine Clearance 98.5 mL/min (>60); Glucose 108 mg/dL (74-106); Osmolality,Calculated 296 (275-295); Phosphorous 4.9 mg/dL (2.4-5.1); Potassium 3.8 mMol/L (3.4-5.1); Sodium 149 mMol/L (136-145); eGFR > 60 See Note
[2024-06-17] VITALS: BP 108/75; PULSE 83; RESP 18; TEMP 36.7; O2SAT 99
[2024-06-17] MEDS: DEXTROSE 5%-WATER 1,000 ML 80 ML IV (01:03)
[2024-06-17 03:51] LABS: Basophils # (Auto) 0.1 Thou/mm3 (0.0-0.2); Basophils % (Auto) 2 % (0-2.5); Eosinophils # (Auto) 0.3 Thou/mm3 (0.0-0.5); Eosinophils % (Auto) 3 % (0-10); Hematocrit 46.1 % (41.0-53.0); Hemoglobin 14.7 g/dL (13.5-16.0); Immature Granulocytes % (Auto) 0 % (0-0); Immature Granulocytes Auto 0.02 Thou/mm3 (0.00-0.00); Lymphocytes # (Auto) 2.6 Thou/mm3 (1.0-4.8); Lymphocytes % (Auto) 27 % (10-50); Mean Corpuscular HGB Conc 31.9 g/dl (31.0-37.0); Mean Corpuscular Volume 81 fL (80-100); Monocytes # (Auto) 0.6 Thou/mm3 (0.0-0.8); Monocytes % (Auto) 7 % (0-12); Neutrophils # (Auto) 5.9 Thou/mm3 (1.8-7.7); Neutrophils % (Auto) 62 % (37-80); Nucleated Red Blood Cell % 0 /100 WBC (0); Platelet Count 198 Thou/mm3 (140-440); RDW Standard Deviation 46.5 fL (35.1-43.9); Red Blood Count 5.66 Miln/mm3 (4.50-5.90); White Blood Count 9.6 Thou/mm3 (3.8-10.6)
[2024-06-17 04:00] VITALS: BP 128/85; PULSE 86; RESP 18; TEMP 36.5; O2SAT 96
[2024-06-17 04:06] LABS: Anion Gap 6 (7-16); BUN/Creatinine Ratio 9 Ratio (12-20); Blood Urea Nitrogen 9 mg/dL (9-23); Calcium 9.4 mg/dL (8.3-10.6); Carbon Dioxide 31.6 mMol/L (20.0-31.0); Chloride 108 mMol/L (98-107); Estimated Creatinine Clearance 98.5 mL/min (>60); Glucose 129 mg/dL (74-106); Osmolality,Calculated 291 (275-295); Potassium 3.6 mMol/L (3.4-5.1); Sodium 146 mMol/L (136-145); eGFR > 60 See Note
[2024-06-17 04:07] LABS: Albumin, Serum 4.2 gm/dL (3.5-5.0); Calcium (Corrected) 9.4 mg/dL (8.5-10.1); Phosphorous 5.3 mg/dL (2.4-5.1)
[2024-06-17] MEDS: LEVOTHYROXINE SODIUM 125 MCG TABLET PO (05:15)
[2024-06-17] MEDS: HYDROCORTISONE 5 MG TABLET 15 MG PO (06:29)
[2024-06-17 08:00] VITALS: BP 123/96; PULSE 83; RESP 16; TEMP 36.3; O2SAT 96
[2024-06-17] MEDS: PANTOPRAZOLE 40 MG TABLET PO (08:02)
[2024-06-17] MEDS: ASPIRIN EC 81 MG TABEC PO (08:02)
--- NOTE | 2024-06-17 10:58 | PC.SS ---
Patient is alert/oriented. He is a resident of [facility]. Patient states he's been at [facility] for the last 7 months. He plans on returning to facility. Patient states his sister, Delmis, is his alt medical decision maker. He keeps in contact with sister. Patient states he receives Social Security income and disability. Patient is independent with ADL's. Patient states he uses a CPAP machine at home. -[employer]. Patient states he uses [employer] for transportation assistance. Patient states he follows with Dr. Cristina @ [facility]. Last appt. was 2 weeks ago. D/c plan is to return to assisted living. transportation: [employer] alt medical decision maker: Sister, Delmis,
[2024-06-17] MEDS: INSULIN LISPRO (AdmeLOG) 1 UNIT/0.01 ML UNIT SC ×3 (11:55→21:15)
[2024-06-17 12:00] VITALS: BP 117/77; PULSE 80; RESP 16; TEMP 36.7; O2SAT 97
[2024-06-17] MEDS: HYDROCORTISONE 5 MG TABLET PO ×2 (14:34→17:50)
--- NOTE | 2024-06-17 14:50 | ESPR_ITS ---
<Statement entered by Ashwin Cleveland DO - 06/17/24 20:56> Senior attestation: Patient was examined and case was reviewed with team including attending physician. Note reviewed, I agree with most of its contents and agree with the patient's care. Patient reports feeling improvement from yesterday, levothyroxine dose was increased to 125 mcg daily. Patient reports he follows [facility] Dr. Watts, has requested our team to contact Dr. Watts if possible, will attempt to contact endocrinology if possible. Patient's behavior therapist also contacted, is in agreement with holding salt tabs for now until outpatient follow up. Physical therapy ordered, anticipate discharge in next 24 hours. Ashwin Cleveland DO PGY-3 Documentation for date of: 06/17/24 Subjective Subjective Interval history: Patient was seen and examined at bedside. No acute events overnight. Today patient presents improved with less drowsiness and somnolence. States that he is feeling better, less weakness and requesting to get out of bed. Patient tolerating diet, adequate urine output. Physical therapy ordered. TSH was 0.06--increased levothyroxine from 100 to 125 mcg daily[address] Patient sees Dr. Watts outpatient in [place] and requested IM team to contact him. Dr. Watts was updated and awaiting recs. Sodium improving with downtrending to 146. Hold D5W. Dr. Powell had started patient on salt tablets which are on hold for now. She was updated and agrees to continue holding salt tablets for now until she sees outpatient. Anticipate d/c in next 24 hrs if pt symptoms continue to improve and pending PT rec. Review of systems otherwise negative except what is mentioned above. Exam Vital Signs Temp Pulse Resp BP Pulse Ox O2 Del Method 98.0 F 80 16 117/77 97 Room Air 06/17/24 12:00 06/17/24 12:00 06/17/24 12:00 06/17/24 12:00 06/17/24 12:00 06/17/24 12:00 Narrative Exam General: Alert and oriented x3. No acute distress, cooperative Eyes: Pupils are equal and reactive to light bilaterally HEENT: Atraumatic, normocephalic. No JVD noted. Mucosa moist. Cardiovascular: Normal S1 and S2. Regular rate and rhythm. No pitting edema Respiratory: Lungs are clear to auscultation bilaterally. No wheezing or crackles heard. Abdomen: Soft, nontender, not distended, normal bowel sounds. Skin: Warm to touch, dry, no rashes noted Musculoskeletal: No gross injuries. Able to move all 4 extremities. Neuro: Alert and oriented x3. No focal neuro deficits. Psych: Normal affect and mood Objective Labs 06/18/24 05:24 06/18/24 05:24 Labs: Laboratory Results - last 24 hr 06/16/24 06/16/24 06/16/24 14:44 19:28 23:00 WBC RBC Hgb Hct MCV MCH MCHC RDW Std Deviation Plt Count Neut % (Auto) Lymph % (Auto) Ness % (Auto) Eos % (Auto) Baso % (Auto) Neut # (Auto) Lymph # (Auto) Ness # (Auto) Eos # (Auto) Baso # (Auto) Immature Gran # (Auto) Absolute Nucleated RBC Immature Gran % Nucleated RBC % Sodium 150 H 147 H 149 H Potassium 3.6 4.2 D 3.8 Chloride 110 H 110 H 107 Carbon Dioxide 31.0 28.7 31.6 H Anion Gap 9 8 10 BUN 9 8 L 11 Creatinine 1.2 1.3 1.0 Estim Creat Clear Calc 82.1 75.8 98.5 eGFR > 60 > 60 > 60 BUN/Creatinine Ratio 8 L 6 L 11 L Glucose 164 H 136 H 108 H Calculated Osmolality 300 H 292 296 H Calcium 9.6 9.6 9.9 Corrected Calcium 9.6 9.6 9.9 Phosphorus 5.9 H 5.4 H 4.9 Albumin 4.3 4.2 4.4 06/17/24 03:35 WBC 9.6 RBC 5.66 Hgb 14.7 D Hct 46.1 MCV 81 MCH 26.0 MCHC 31.9 RDW Std Deviation 46.5 H Plt Count 198 Neut % (Auto) 62 Lymph % (Auto) 27 [place]ess % (Auto) 7 Eos % (Auto) 3 Baso % (Auto) 2 Neut # (Auto) 5.9 Lymph # (Auto) 2.6 Ness # (Auto) 0.6 Eos # (Auto) 0.3 Baso # (Auto) 0.1 Immature Gran # (Auto) 0.02 H Absolute Nucleated RBC 0.00 Immature Gran % 0 Nucleated RBC % 0 Sodium 146 H Potassium 3.6 Chloride 108 H Carbon Dioxide 31.6 H Anion Gap 6 L BUN 9 Creatinine 1.0 Estim Creat Clear Calc 98.5 eGFR > 60 BUN/Creatinine Ratio 9 L Glucose 129 H Calculated Osmolality 291 Calcium 9.4 Corrected Calcium 9.4 Phosphorus 5.3 H Albumin 4.2 Quality Measures Quality Measures none Assessment & Plan Assessment Current Active Medications: Generic Name Dose Route Start Last Admin Trade Name Freq PRN Reason Stop Dose Admin Acetaminophen 650 mg 06/17/24 10:25 Acetaminophen 325 Mg Tablet PO 07/15/24 11:57 Q6H PRN Fever >100.3 Aspirin 81 mg 06/15/24 16:30 06/17/24 08:02 Aspirin Ec 81 Mg Tabec PO 07/15/24 16:29 81 mg QDAY GERARD Administration Dextrose 50 ml 06/16/24 13:07 Dextrose 50%-Water Inj 50 Ml Syringe IV 07/16/24 13:06 Q15MIN PRN BG <50 OR BG <70 & pt unresponsive Glucagon 1 mg 06/16/24 13:07 Glucagon Inj 1 Mg Vial IM Q15MIN PRN BG <70, and no IV access Hydrocortisone 5 mg 06/15/24 18:00 06/17/24 14:34 Hydrocortisone 5 Mg Tablet PO 07/15/24 17:59 5 mg BID@1400,1800 GERARD Administration Hydrocortisone 15 mg 06/16/24 06:00 06/17/24 06:29 Hydrocortisone 5 Mg Tablet PO 07/16/24 05:59 15 mg QDAY@0600 GERARD Administration Insulin Human Lispro 0 unit 06/16/24 17:00 06/17/24 11:55 Insulin Lispro (Admelog) 1 Unit/0.01 Ml Unit SC 07/16/24 16:59 4 unit ACHS GERARD Administration Protocol Levothyroxine Sodium 125 mcg 06/17/24 06:00 06/17/24 05:15 Levothyroxine Sodium 125 Mcg Tablet PO 07/17/24 05:59 125 mcg ACBR [facility]ER[facility] Administration Home Medication- 1 ea 06/15/24 16:45 06/17/24 14:30 Please Speak With PO 07/15/24 16:44 Not Given Patient Caregiver To TID GERARD Have Rx Brought To [facility] Ondansetron HCl 4 mg 06/15/24 11:58 Ondansetron Inj 2 Mg/Ml Inj 2 Ml IV 07/15/24 11:57 Q6H PRN NAUSEA OR VOMITING Protocol Pantoprazole Sodium 40 mg 06/16/24 09:00 06/17/24 08:02 Pantoprazole 40 Mg Tablet PO 07/16/24 08:59 40 mg DAILY [facility] Administration Plan Mr Gold is a 53-year-old male with significant past medical history of 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 Generalized weakness, resolving Secondary to 2. Panhypopituitarism 3. Severe Hypothyroidism - Patient had a history of pituitary tumor removal at the age of 5 - Since then using medications -hydrocortisone 5 Mg p.o. twice daily, desmopressin 0.2 Mg p.o. 3 times daily, levothyroxine 100 mcg p.o. daily, Jardiance 10 Mg p.o. daily, Tradjenta 5 Mg p.o. daily - Recently admitted in the hospital in December 2023 for hyponatremia - Presented with generalized weakness and also reported that his knees are giving away , as well as polyuria x 2 weeks - Chest x-ray : no active disease - Severe hypothyroid : TSH 0.06 and free T4 0.83 Plan: - Will continue Hydrocortisone at home dose : 15mg @6am + 5mg @2pm + 5mg @6pm - continue Levothyroxine 125 mcg daily for now - Recommended to follow-up with Endocrinology Dr. Watts outpatient for further treatment of hypothyroidism - PT evaluation pending 4. Hypertonic Hypernatremia - improving 5. Polyuria - Patient has a history of hyponatremia and was discharged on last hospitalization with NaCl tablets 1g daily - Labs : Sodium 146 and Osm 306 on presentation - Stated that he is having increased frequency of micturition without any symptoms of UTI - 06/16 : Discontinued 0.45 NS, given increase in Na 146 -> 153. Plan: - stop D5W @ 80 cc/h today sodium downtrended to 146 -osmol 291 - Will continue to monitor CMP - Stop all salt tabs for no--f/u with Dr. Powell outpatient - Low sodium diet only Hospital Maintenance: Dispo: d/c tomorrow pending PT DVT ppx: SCDs GI ppx: PPI Diet: Low sodium IV lines: Peripheral Code status: Full code Plan of care discussed with attending Dr Powell and senior Dr. Cristofer Kennedy, PGY-1 Attending Provider Attestation/Addendum I reviewed labs, imaging, EKG, home medications and prior available records. Face to face evaluation was performed by me. I have personally examined the patient and discussed assessment and plan with the IM team. I reviewed the resident note and agree with the plan with exceptions as below. Please see my separate addendum for the same date of service
[2024-06-17 16:00] VITALS: BP 107/76; PULSE 78; RESP 16; TEMP 36.6; O2SAT 96
[2024-06-17 20:00] VITALS: BP 109/82; PULSE 79; RESP 18; TEMP 36.8; O2SAT 99
[2024-06-18] VITALS: BP 116/81; PULSE 86; RESP 19; TEMP 36.7; O2SAT 96
[2024-06-18 04:00] VITALS: BP 118/91; PULSE 82; RESP 18; TEMP 36.7; O2SAT 96
[2024-06-18] MEDS: LEVOTHYROXINE SODIUM 125 MCG TABLET PO (05:21)
[2024-06-18 06:10] LABS: Basophils # (Auto) 0.1 Thou/mm3 (0.0-0.2); Basophils % (Auto) 1 % (0-2.5); Eosinophils # (Auto) 0.3 Thou/mm3 (0.0-0.5); Eosinophils % (Auto) 3 % (0-10); Hematocrit 46.5 % (41.0-53.0); Hemoglobin 14.8 g/dL (13.5-16.0); Immature Granulocytes % (Auto) 0 % (0-0); Immature Granulocytes Auto 0.02 Thou/mm3 (0.00-0.00); Lymphocytes # (Auto) 2.3 Thou/mm3 (1.0-4.8); Lymphocytes % (Auto) 25 % (10-50); Mean Corpuscular HGB Conc 31.8 g/dl (31.0-37.0); Mean Corpuscular Hemoglobin 25.8 pg (25.0-35.0); Mean Corpuscular Volume 81 fL (80-100); Monocytes # (Auto) 0.6 Thou/mm3 (0.0-0.8); Monocytes % (Auto) 6 % (0-12); Neutrophils # (Auto) 6.1 Thou/mm3 (1.8-7.7); Neutrophils % (Auto) 65 % (37-80); Nucleated Red Blood Cell % 0 /100 WBC (0); Platelet Count 183 Thou/mm3 (140-440); RDW Standard Deviation 44.2 fL (35.1-43.9); Red Blood Count 5.73 Miln/mm3 (4.50-5.90); White Blood Count 9.4 Thou/mm3 (3.8-10.6)
[2024-06-18] MEDS: HYDROCORTISONE 5 MG TABLET 15 MG PO (06:10)
[2024-06-18 06:46] LABS: Alanine Aminotransferase 62 U/L (10-49); Albumin, Serum 4.6 gm/dL (3.5-5.0); Albumin/Globulin Ratio 1.4 (1.2-2.2); Alkaline Phosphatase 106 U/L (46-116); Anion Gap 9 (7-16); Aspartate Amino Transferase 23 U/L (0-34); BUN/Creatinine Ratio 9 Ratio (12-20); Bilirubin,Total 0.8 mg/dL (0.3-1.2); Blood Urea Nitrogen 10 mg/dL (9-23); Calcium 9.9 mg/dL (8.3-10.6); Calcium (Corrected) 9.9 mg/dL (8.5-10.1); Carbon Dioxide 30.5 mMol/L (20.0-31.0); Chloride 105 mMol/L (98-107); Creatinine (Component) 1.1 mg/dL (0.6-1.3); Globulin 3.3 gm/dL (2.3-3.5); Glucose 105 mg/dL (74-106); Osmolality,Calculated 285 (275-295); Sodium 144 mMol/L (136-145); Total Protein 7.9 gm/dL (5.7-8.2); eGFR > 60 See Note
[2024-06-18 07:58] VITALS: BP 123/87; PULSE 81; RESP 18; TEMP 36.2; O2SAT 97
[2024-06-18] MEDS: PANTOPRAZOLE 40 MG TABLET PO (09:51)
[2024-06-18] MEDS: ASPIRIN EC 81 MG TABEC PO (09:51)
[2024-06-18 12:00] VITALS: BP 120/88; PULSE 74; RESP 18; TEMP 36.2; O2SAT 93
[2024-06-18] MEDS: INSULIN LISPRO (AdmeLOG) 1 UNIT/0.01 ML UNIT SC (12:10)
--- NOTE | 2024-06-18 12:25 | PC.SS ---
Addendum entered by Jeanine Delong 06/18/24 12:47: Also faxed to [facility] [phone] Original Note: DME referral for Wheelchair submitted via [facility] pending responses.
--- NOTE | 2024-06-18 12:51 | PC.PT ---
PT eval only. Patient is I with transfers and ambulation with AD.
--- NOTE | 2024-06-18 14:05 | CHAP ---
09:30 AM Visited by spiritual care volunteer Provided prayer for Patient.
--- NOTE | 2024-06-18 14:34 | PC.SS ---
Addendum entered by Lexy Lantigua 06/18/24 15:51: EMS ETA 1700. SW notified Rachel. Original Note: Assistant Sales Manager (LAZ) Lexy received a phone call from Rachel reporting that Jennifer Espinoza reported that no staff can come and pick him up. LAZ contacted [facility] to schedule a non-emergency transportation; reference number: [id number]. Patient is now pending transportation to return home.
--- NOTE | 2024-06-18 14:38 | ESDS_ITS ---
<Statement entered by Sung Thornton MD - 06/19/24 12:31> Patient was examined with the team including attending physician. Note reviewed, I agree with the discharge plan as documented. - Sung Thornton M.D. PGY2 Planned Discharge Date 06/18/24 DS: Providers Provider Date of admission: 06/15/24 11:58 Primary care physician: Lyla Cristina MD Admitting Provider: Tommy Powell MD Attending Provider on Admission: oTmmy Powell MD Consults: 06/17/24 07:00 Referral Physical Therapy Routine Comment: Physician Instructions: Attending Provider on DC: Camille Kennedy MD Discharging Provider: Christiano Lee MD DS: Diagnosis Problem List Completed Was Problem List Reviewed/Reconciled?: Yes Hospital Course Hospital Course Hospital course: Reason for hospitalization: Generalized weakness and hypernatremia Celestine Gold is 53 yr male with PMH of panhypopituitarism with diabetes mellitus, diabetes insipidus, hypothyroidism, and adrenal insufficiency s/p pituitary tumor removal at the age of 65 years old. He presented to ED on 06/15/2024 due to generalized weakness. Patient had also noticed increased frequency of urinat ion but no symptoms of UTI. Patient admitted for evaluation of generalized weakness. Further testing revealed hypernatremia with sodium level 155. Supplemental salt tablets were held. TSH was 0.06 and free T4 0.83. Patient's levothyroxine was increased from 100 to 125 mcg and continued with home medication hydrocortisone 15 mg daily. He follows [facility] Dr. Watts in [place] who was contacted about patient's status. During course of stay, patient's weakness significantly improved. Sodium levels down trended to 144. Patient is now in stable condition and ready for discharge. Recommendations were given as below. Discharge Recommendations: Follow-up with [facility] as soon as possible. Follow-up with PCP within 1 week and repeat CMP. Hold salt tablets for now. Start taking increased dose of levothyroxine from 100 mcg to 125 mcg daily. Continue other home medications as noted above. Return to ED if symptoms worsen or return. Hospital Diagnoses: 1. Generalized weakness, resolved 2. Panhypopituitarism 3. Severe Hypothyroidism 4. Hx diabetes insipidus 5. Hx diabetes mellitus 6. Hx adrenal insufficiency 7. Hypertonic Hypernatremia - improving 8. Polyuria The patient's management plan was discussed with my attending physician Dr. Lee and senior Dr. Thornton. Camille Kennedy MD, PGY-1 Time Spent with Patient Time attestation: Total time spent providing and/or coordinating discharge services: Time spent: Greater than 30 minutes Exam Vital Signs Temp Pulse Resp BP Pulse Ox O2 Del Method 97.1 F 74 18 120/88 H 93 L Room Air 06/18/24 12:00 06/18/24 12:00 06/18/24 12:06/18/24 12:00 06/18/24 12:06/18/24 12:00 Narrative Exam General: Alert and oriented x3. No acute distress, cooperative Eyes: Pupils are equal and reactive to light bilaterally HEENT: Atraumatic, normocephalic. No JVD noted. Mucosa moist. Cardiovascular: Normal S1 and S2. Regular rate and rhythm. No pitting edema Respiratory: Lungs are clear to auscultation bilaterally. No wheezing or crackles heard. Abdomen: Soft, nontender, not distended, normal bowel sounds. Skin: Warm to touch, dry, no rashes noted Musculoskeletal: No gross injuries. Able to move all 4 extremities. Neuro: Alert and oriented x3. No focal neuro deficits. Psych: Normal affect and mood Discharge Plan Plan Patient Disposition: Xfer Skilled Nsg Fac (SNF) Disposition Comment: Stable and back to baseline Patient condition on transfer: Stable Care Plan Goals: Follow-up with [facility] as soon as possible. Follow-up with PCP within 1 week and repeat CMP. Hold salt tablets for now. Start taking increased dose of levothyroxine from 100 mcg to 125 mcg daily. Continue other home medications as noted above. Return to ED if symptoms worsen or return. Prescriptions/Referrals Prescriptions/Med Rec: New levothyroxine 125 mcg capsule 125 mcg PO QDAY 30 Days Qty: 30 0RF Continued Tradjenta 5 mg tablet 5 mg PO DAILY Jardiance 10 mg tablet 10 mg PO QAM atorvastatin 40 mg tablet 40 mg PO HS omeprazole 20 mg capsule,delayed release(DR/EC) 20 mg PO DAILY montelukast 10 mg Tablet 10 mg PO QPM aspirin 81 mg Tablet 81 mg PO QDAY hydrocortisone 5 mg Tablet 5 mg PO QDAY@1400 30 Days Qty: 30 3RF hydrocortisone 5 mg Tablet 15 mg PO QDAY@0600 30 Days Qty: 90 3RF hydrocortisone 5 mg Tablet 5 mg PO QDAY@1800 30 Days Qty: 30 3RF desmopressin 0.2 mg tablet 0.2 mg PO TID Qty: 60 2RF Discontinued levothyroxine 100 mcg tablet 100 mcg PO DAILY No Action solifenacin 5 mg tablet 5 mg PO QID trazodone 100 mg tablet 150 mg PO HS Hold Instructions: Resume on 01/25/24. Please f/u with your PCP or [facility] before resuming it sodium chloride 1,000 mg tablet,soluble 1,000 mg PO QDAY Qty: 30 0RF Referrals: Lyla Cristina MD [Primary Care Provider] - Patient/Caregiver Discharge Instructions Meds to Beds: Yes Discharge Activity: resume usual activities Other Discharge Activity Instructions:: Follow-up with [facility] as soon as possible. Follow-up with PCP within 1 week and repeat CMP. Hold salt tablets for now. Start taking increased dose of levothyroxine from 100 mcg to 125 mcg daily. Continue other home medications as noted above. Return to ED if symptoms worsen or return. Education Materials: ED Hyponatremia, Diabetes and High Blood Pressure Print Language: Kazakh Stand Alone Forms: Jannie Award Info., Patient Portal Info Letter Discharge Order Discharge Orders: Discharge (Routine); Ordered 06/18/24 Ordered By: Sung Thornton Quality Discharge Quality Measures VTE prophylaxis MD Attestestation MD Attestation I have examined the patient, reviewed labs and imaging findings, discussed the case with the resident(s), and reviewed entered orders. I agree with the plan of care as outlined in this note. Dr. Lee
[2024-06-18 16:00] VITALS: BP 110/75; PULSE 74; RESP 19; TEMP 36.2; O2SAT 96
--- NOTE | 2024-06-18 17:33 | PC.NURSE ---
pt was dcd @1700 for hydorcortisone not given med was also unavailable
== END 2024-06-18 17:05 | disposition skilled nursing facility (03) | DRG 641 ==
LOC: SERX 10:31 → SERHOLD 12:12 → S3SX 14:59
PROVIDERS: Physician Assistant; Student in an Organized Health Care Education/Training Program; Admitting Provider Student in an Organized Health Care Education/Training Program; Emergency Provider Emergency Medicine; PCP Internal Medicine; Visit Provider Student in an Organized Health Care Education/Training Program
DX: E87.0 Hyperosmolality and hypernatremia (principal); E23.0 Hypopituitarism; E27.40 Unspecified adrenocortical insufficiency; R35.0 Frequency of micturition; E03.9 Hypothyroidism, unspecified; Z79.52 Long term (current) use of systemic steroids; Z79.890 Hormone replacement therapy; E11.9 Type 2 diabetes mellitus without complications
CPT/HCPCS: 36415; 71045; 80053; 80069; 81001; 82550; 83735; 83880; 84100; 84300; 84439; 84443; 84484; 85025; 87081; 93005; 97162; 99291; J1720; J1815; J7030; J7070; A9270

== ENCOUNTER 2024-09-09 11:23 | Emergency (ER) | payer MEDICARE, SELFPAY ==
[2024-09-09 11:23] VITALS: PULSE 90; RESP 16; O2SAT 96
--- NOTE | 2024-09-09 11:54 | XR_ITS ---
Examination: Lumbar spine 3 views TECHNIQUE: AP lateral coned lateral lower lumbar spine 3 views Exam date and time: August 12, 2024 at 1127 hours INDICATIONS: Low back pain beginning one month ago. FINDINGS: No lumbar fracture Mild to moderate lumbar disc narrowing most prominent at L5-S1. No spondylolisthesis. Moderate to advanced bilateral hip osteoarthritis IMPRESSION: Mild to moderate lumbar degenerative disc disease, most prominent at L5-S1
--- NOTE | 2024-09-09 11:54 | PD.EDBACK ---
ED Back Injury Pain RME/HPI General Chief Complaint: Back Pain/Injury Stated Complaint: BACK LOCKED UP, HAPPENS DAILY Time Seen by Provider: 09/09/24 11:34 Source: patient Arrival date/time: 09/09/24 11:23 53-year-old male with a history of chronic back pain, hyperlipidemia, type 2 diabetes presents to the emergency room with a chief complaint of his back locking up. Patient was brought by EMS and stated that he had an episode of 10 out of 10 back pain. Now during evaluation patient states his back pain is gone and only happens in certain positions. Mode of arrival: ambulatory Limitations: no limitations Related Data Home Medications ?Medication ?Instructions ?Recorded ?Confirmed aspirin 81 mg tablet 81 mg PO QDAY 12/26/23 06/15/24 atorvastatin 40 mg tablet 40 mg PO HS 12/26/23 06/15/24 empagliflozin 10 mg tablet 10 mg PO QAM 12/26/23 12/26/23 (Jardiance) linagliptin 5 mg tablet (Tradjenta) 5 mg PO DAILY 12/26/23 12/26/23 montelukast 10 mg tablet 10 mg PO QPM 12/26/23 06/15/24 omeprazole 20 mg capsule,delayed 20 mg PO DAILY 12/26/23 06/15/24 release solifenacin 5 mg tablet 5 mg PO QID 12/26/23 01/13/24 trazodone 100 mg tablet 150 mg PO HS 12/26/23 01/13/24 Held on 01/18/24. Instructions: Resume on 01/25/24. Please f/u with your PCP or gum machine filler before resuming it Previous Rx's ?Medication ?Instructions ?Recorded sodium chloride 1,000 mg soluble 1,000 mg PO QDAY #30 tabs 11/11/23 tablet hydrocortisone 5 mg tablet 5 mg PO QDAY@1400 30 days #30 tabs 01/18/24 hydrocortisone 5 mg tablet 5 mg PO QDAY@1800 30 days #30 tabs 01/18/24 hydrocortisone 5 mg tablet 15 mg (3 x 5 mg) PO QDAY@0600 30 01/18/24 days #90 tabs desmopressin 0.2 mg tablet 0.2 mg PO TID #60 tabs 01/19/24 Allergies Allergy/AdvReac Type Severity Reaction Status Date / Time No Known Allergies Allergy Verified 09/09/24 11:27 Review of Systems Review of Systems Systems Reviewed: All systems reviewed, normal except as documented Constitutional Constitutional: Reports system reviewed and no additional complaints, except as documented, Denies fatigue, Denies fever(s), Denies headache(s) and Denies weakness Eyes Eyes: Reports system reviewed and no additional complaints, except as documented, Denies blurry vision and Denies change in vision ENT Ears, Nose, Mouth, and Throat: Reports system reviewed and no additional complaints, except as documented, Denies otalgia, Denies headache(s), Denies nasal congestion, Denies throat swelling and Denies vertigo Cardiovascular Cardiovascular: Reports system reviewed and no additional complaints, except as documented, Denies chest pain, Denies dyspnea and Denies dyspnea on exertion Respiratory Respiratory: Reports system reviewed and no additional complaints, except as documented, Denies chest congestion, Denies cough, Denies dyspnea, Denies dyspnea on exertion and Denies wheezing Gastrointestinal Gastrointestinal: Reports system reviewed and no additional complaints, except as documented, Denies abdominal pain, Denies cramping, Denies nausea and Denies vomiting Genitourinary Genitourinary: Reports system reviewed and no additional complaints, except as documented, Denies dysuria and Denies hematuria Musculoskeletal Musculoskeletal: Reports system reviewed and no additional complaints, except as documented, Reports arthralgias and Reports back pain Integumentary/Breasts Skin/Breast: Reports system reviewed and no additional complaints, except as documented and Denies wounds Neurologic Neurologic: Reports system reviewed and no additional complaints, except as documented, Denies confusion, Denies headache(s), Denies lack of coordination, Denies vertigo and Denies weakness Psychiatric Psychiatric: Reports system reviewed and no additional complaints, except as documented, Denies anxiety, Denies confusion, Denies depression, Denies paranoia, Denies suicidal ideation and Denies tactile hallucinations Endocrine Endocrine: Reports system reviewed and no additional complaints, except as documented and Denies fatigue Hematologic/Lymphatic Hematologic/Lymphatic: Reports system reviewed and no additional complaints, except as documented and Denies lymphadenopathy Allergic/Immunologic Allergic/Immunologic: Reports system reviewed and no additional complaints, except as documented, Denies throat swelling, Denies urticaria and Denies wheezing Past Medical History Past Medical History NEUROLOGIC: Positive Brain Tumor; Negative Seizures CARDIAC: Negative Congestive Heart Failure RESPIRATORY: Negative Chronic Obstructive Pulmonary Disease (COPD) GENITOURINARY: Negative Renal Disease MUSCULOSKELETAL: Negative Muscular Dystrophy ENDOCRINE: Positive Diabetes Mellitus Type 2 and Pituitary Disease; Negative Diabetes Mellitus Type 1 PSYCHO/SOCIAL: Positive Depression OTHER HISTORY: Positive Falls Family History FAMILY HISTORY: Negative Family Cardiac Disorders Social History SMOKING STATUS: Never smoker ED Exam General Limitations: Present no limitations General appearance: Present alert and in no apparent distress Head Head exam: Present atraumatic Eye Eye exam: Present normal appearance, PERRL and EOMI ENT ENT exam: Present normal exam, normal oropharynx and mucous membranes moist Neck Neck exam: Present normal inspection, full ROM and trachea midline Chest Chest inspection: Present normal inspection and symmetric chest wall rise Respiratory Respiratory exam: Present normal lung sounds bilaterally Cardiovascular Cardiovascular exam: Present regular rate, normal rhythm and normal heart sounds Abdominal Exam Abdominal exam: Present soft and normal bowel sounds Extremities Exam Extremities exam: Present normal inspection and full ROM Back Exam Back exam: Present normal inspection, full ROM, tenderness and vertebral tenderness Back 1 view image:  1. Neurological Exam Neurological exam: Present alert, oriented X3 and CN II-XII intact Psychiatric Psychiatric exam: Present normal affect and normal mood Skin Skin exam: Present warm, dry, intact and normal color Course Quality Measures none Orders Category Date Time Status XR lumbar spine 2-3V Stat Exams 09/09/24 11:54 Completed Vital Signs Vital signs: Vital Signs Temperature 98.7 F 09/09/24 12:12 Pulse Rate 66 09/09/24 12:12 Respiratory Rate 19 09/09/24 12:12 Blood Pressure 143/94 H 09/09/24 12:12 Pulse Oximetry (%) 98 09/09/24 12:12 Oxygen Delivery Method Room Air 09/09/24 12:12 O2 saturation within normal limits Back Pain / Injury MDM Narrative MDM Narrative:: 53-year-old male with a history of chronic back pain, hyperlipidemia, type 2 diabetes presents to the emergency room with a chief complaint of his back locking up. Patient was brought by EMS and stated that he had an episode of 10 out of 10 back pain. Now during evaluation patient states his back pain is gone and only happens in certain positions. Patient is hemodynamically stable and in no apparent distress Physical examination shows tenderness with palpation to the lumbar area of the spine. Current during my evaluation patient states he is no longer in pain. X-rays of the lumbar spine show moderate to mild degenerative disc disease of the lumbar spine Patient was discharged and educated to follow-up with primary care provider in the next 24 to 48 hours and return to the emergency room for any evidence of worsening signs or symptoms Patient data External records reviewed:: [facility] previous records Clinical information provided by:: patient Social determinants that could affect healthcare access:: none Patient has the following chronic illnesses:: Chronic back pain, type 2 diabetes, hypertension, hyperlipidemia How is presenting disease/condition affected by chronic disease/condition?: exacerbated by Evaluation data The following diagnostics were reviewed and interpreted by me:: lab results and radiology exam(s) Lab and/or radiology exams considered but not ordered:: Labs and radiology exams considered and ordered Interpretation Summary: Lumbar [id number]: No lumbar fracture Mild to moderate lumbar disc narrowing most prominent at L5-S1. No spondylolisthesis. Moderate to advanced bilateral hip osteoarthritis IMPRESSION: Mild to moderate lumbar degenerative disc disease, most prominent at L5-S1 Medications / Prescriptions Medications or Prescriptions considered but not ordered:: No medication given Medication administrations:: No medication given Consultations Consultation(s) initiated? (list below): No Diagnosis Differential diagnosis back pain/injury: lumbar radiculopathy, strain of lumbar region, thoracic back pain, discitis and other (Degenerative disc disease) Most likely diagnosis given after review of the tests above:: Degenerative disc disease Admission Indicated Admission indicated?: not indicated Admission Request Was there a request for admission?: No Disposition Plan Disposition Plan: Discharge Discharge Attestation Discharge Attestation: The patient and all family members were given an opportunity to ask questions and understood the discharge instructions. Discharge instructions specifically effects, indications for sooner follow up or return to the emergency department, and the expected course of current diagnosis. Patient condition: Stable Discharge Plan Plan Patient Disposition: HOME (Self Care) Disposition Comment: Stable Prescriptions/Referrals Prescriptions/Med Rec: No Action solifenacin 5 mg tablet 5 mg PO QID Tradjenta 5 mg tablet 5 mg PO DAILY Jardiance 10 mg tablet 10 mg PO QAM atorvastatin 40 mg tablet 40 mg PO HS trazodone 100 mg tablet 150 mg PO HS omeprazole 20 mg capsule,delayed release(DR/EC) 20 mg PO DAILY montelukast 10 mg Tablet 10 mg PO QPM aspirin 81 mg Tablet 81 mg PO QDAY hydrocortisone 5 mg Tablet 5 mg PO QDAY@1400 30 Days Qty: 30 3RF hydrocortisone 5 mg Tablet 15 mg PO QDAY@0600 30 Days Qty: 90 3RF hydrocortisone 5 mg Tablet 5 mg PO QDAY@1800 30 Days Qty: 30 3RF desmopressin 0.2 mg tablet 0.2 mg PO TID Qty: 60 2RF sodium chloride 1,000 mg tablet,soluble 1,000 mg PO QDAY Qty: 30 0RF Referrals: David (PCP),MD Efe [Primary Care Provider] - In 1 week Problem List Clinical Impression: Degenerative disc disease Patient/Caregiver Discharge Instructions Additional Instructions: Please follow-up with your primary care provider in the next 24 to 48 hours. X-rays were completed of your lumbar spine and shows degeneration disc disease. Please follow-up with your primary care provider regarding these findings for further management as a referral to a oil fire specialist might be indicated if your signs and symptoms continue For any evidence of worsening signs or symptoms return to emergency room immediately Print Language: Polish Stand Alone Forms: Jannie Award Info., Patient Portal Info Letter PA/NIECY Supervising Physician EEVRARDO/NIECY Supervising Physician: Dr. Rodriguez
[2024-09-09 12:12] VITALS: BP 143/94; PULSE 66; RESP 19; TEMP 37.1; O2SAT 98; BMI 33.2
== END 2024-09-09 14:55 | disposition home or self-care (01) ==
PROVIDERS: Emergency Provider Emergency Medicine; PCP Family Medicine
DX: M51.370 Other intervertebral disc degeneration, lumbosacral region with discogenic back pain only (principal)
CPT/HCPCS: 72100; 99283